=== PATIENT | male | born 1995 | race Caucasian/White ===

== ENCOUNTER → 2024-02-06 | Outpatient (REF) | payer OTHER | LOC: RAD 09:57 | PROVIDERS: ATTEND Internal Medicine | DX: M54.50 Low back pain, unspecified (principal); M54.32 Sciatica, left side; M25.552 Pain in left hip | CPT/HCPCS: 72100 ==

== ENCOUNTER → 2024-06-01 | Outpatient (REF) | payer BC | LOC: MRI 09:38 | PROVIDERS: ATTEND Internal Medicine | DX: M54.42 Lumbago with sciatica, left side (principal) | CPT/HCPCS: 72148 ==